=== PATIENT | female | born 1985 | race Caucasian/White ===

== ENCOUNTER 2018-01-12 22:27 | Emergency (ER) | payer OTHER ==
[2018-01-12] MEDS ORDERED: IBUPROFEN 600 MG TAB PO ONE (22:41)
[2018-01-12] MEDS ORDERED: AMOXICILLIN/CLAVULANATE POT 875/125 MG TAB PO ONE (22:42)
--- NOTE | 2018-01-12 22:47 | EDPHY ---
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 The dog bit her in the nose. The dog did have tags indicating that it had rabies immunizations. Patient reports 6 to 7/ 10 nose pain since the injury that occurred 0.5 hr prior to arrival. She does have some mild tingling to the tip of her nose since the incident. She denies any other significant injuries from the incident. She has not taken any medication for the injury in terms of pain medications prior to arrival and arrived by private vehicle with a friend. ROS: Constitutional: No complaints HEENT: No difficulty breathing through no since the incident occurred. No bony pain. Integumentary: No other significant bite injuries 5 point review of symptoms is performed and otherwise negative with exception of pertinent positives and negatives listed in HPI and ROS (Nestor Gary) Past Medical/Surgical History: She believes her tetanus is up-to-date. (Nestor Gary) Physical Exam: Physical Exam Vital signs are normal. General: No acute distress HEENT: The patient has lacerations to the tip of her nose consistent with bite injury. There is mild bleeding. Nares are clear with no septal hematoma. There is no bony tenderness to the nose. No asymmetry. She is able to breathe through both nares without of Eyes: Pupils equal and react to light. Extraocular motions are intact. Lungs: No respiratory distress. Cardiac: Brisk capillary refill is intact throughout. Pulses are 2+ and symmetric in the affected extremity. Skin: No rash or pallor. Neuro: Alert and oriented x3 with no sensorimotor deficits. (Nestor Gary ) Constitutional: Initial Vital Signs Temperature (C) 36.6 C 01/12/18 22:28 Heart Rate 78 01/12/18 22:28 Respiratory Rate 16 01/12/18 22:28 Blood Pressure 129/79 H 01/12/18 22:28 O2 Sat (%) 99 01/12/18 22:28 O2 Delivery Mode Room Air Allergies/Adverse Reactions: No Known Allergies Allergy (Unverified 01/25/16 19:24) Home Medications: Medication Instructions Recorded [facility] 01/25/16 Amoxicillin/Clavulanate Pot 875 mg PO BID #14 tab 01/13/18 [Augmentin 875 MG TAB (*)] MDM/Departure - MDM Medications Given: Discontinued Medications Amoxicillin/Clavulanate Potassium (Augmentin 875mg) 875 mg PO EDNOW ONE PRN Reason: Protocol Stop: 01/12/18 22:43 Last Admin: 01/12/18 22:54 Dose: 875 mg Ibuprofen (Motrin) 600 mg PO EDNOW ONE Stop: 01/12/18 22:42 Last Admin: 01/12/18 22:54 Dose: 600 mg ED Course/Re-evaluation: At 10:48 p.m. 2% lidocaine jelly is applied to the patient's nose given ibuprofen 600 and Augmentin 875 p.o. (Nestor Gary) The patient was re-examined by me. There is approximately 2.5 cm jagged flap laceration on the left tip of her nose, this is not through and through. There is also swelling and contusion on the bridge of her nose. There is scant blood in her nares and no active bleeding and no septal hematoma. The wound was anesthetized with topical lidocaine without epinephrine. Wound was irrigated and then the flap was tacked down with topical skin adhesive. There is a small area of skin defect in the middle of the flap. I discussed the patient how the edges of the wound may not be viable given how thin the flap is. We discussed home care and signs and symptoms of infection. (Tori Laws) - Depart Disposition: Home, Routine, Self-Care Clinical Impression: Dog bite of nose Qualifiers: Encounter type: initial encounter Qualified Code(s): S01.25XA - Open bite of nose, initial encounter Condition: Good Instructions: Animal Bite (ED), Skin Adhesive Care (ED) Additional Instructions: You were seen by Dr. Tori Laws today. Keep the area dry for the next 24-48 hr. Then you may wash her face with but do not scrub the area. Avoid putting anything over the area until the Dermabond has come off after 5 days or so. Then keep the wound covered with ointment such as Aquaphor and keep it out of the sun to improve cosmetic healing. Take antibiotics as prescribed. I recommend taking probiotics in between doses of antibiotics. Return for any worsening or new concerns. Prescriptions: Amoxicillin/Clavulanate Pot [Augmentin 875 MG TAB (*)] 875 mg PO BID #14 tab Referrals: Patient,NotPresent [Primary Care Provider] - As per Instructions
[2018-01-12] MEDS ORDERED: LIDOCAINE 2% JELLY 5 ML TUBE ONE (22:50)
[2018-01-12] MEDS ORDERED: SKIN ADHESIVE (DERMABOND) 1 EACH TP ONE (23:30)
[2018-01-12] MEDS ORDERED: TDAP ADULT 0.5 ML INJ (BOOSTRIX) IM ONE (23:31)
[2018-01-13 00:27] VITALS: BP 118/62
== END 2018-01-13 00:25 | disposition home or self-care (01) ==
LOC: CED 22:27
PROC: 09QKXZZ Repair Nasal Mucosa and Soft Tissue, External Approach (ICD-10-PCS; principal; 2018-01-12)
DX: S00.37XA Other superficial bite of nose, initial encounter (principal); Z23 Encounter for immunization; W54.0XXA Bitten by dog, initial encounter; Y92.9 Unspecified place or not applicable; Y93.K9 Activity, other involving animal care; Y99.9 Unspecified external cause status